=== PATIENT | female | born 1985 | race Caucasian/White ===

== ENCOUNTER 2019-04-04 23:23 | Inpatient (IN) | payer OTHER ==
[2019-04-04] MEDS: SOD CHLORIDE 0.9% 1,000 ML IV (23:59)
[2019-04-04] MEDS: ONDANSETRON 4 MG INJ IV (23:59)
[2019-04-04] MEDS: morphine 2 MG INJ IV (23:59)
[2019-04-05] MEDS ORDERED: NACL 0.9% 3 ML SYG IV
[2019-04-05 00:06] LABS: ABNORMAL IP MESSAGE 1; HEMOGLOBIN 7.8 g/dl (12.0-16.0); MEAN CORPUSCULAR HEMOGLOBIN 31.3 pg (29.0-33.0); MEAN CORPUSCULAR HGB CONC 32.5 g/dl (32.0-37.0); MEAN CORPUSCULAR VOLUME 96.4 fl (82.0-101.0); MEAN PLATELET VOLUME 10.2 fl (7.4-10.4); NUCLEATED RED BLOOD CELLS% 0.2 /100WBC (0.0-0.0); PLATELET COUNT 310 10^3/UL (140-415); RED BLOOD COUNT 2.49 10^6/ul (4.20-5.40); RED CELL DISTRIBUTION WIDTH 22.4 % (11.5-14.5)
[2019-04-05 00:06] LABS: WHITE BLOOD COUNT 9.4 10^3/ul (4.8-10.8)
[2019-04-05 00:09] LABS: ADD MAN DIFF? YES; POSITIVE DIFF @See below
[2019-04-05 00:12] LABS: HAAIG REFLEX REFLEX FILED
[2019-04-05 00:14] LABS: RETICULOCYTE RBC 2.35
[2019-04-05 00:14] LABS: RETICULOCYTE COUNT # 0.043 X10^6 (0.020-0.110); RETICULOCYTE COUNT % 1.8 % (0.5-1.5)
[2019-04-05 00:22] LABS: ALANINE AMINOTRANSFERASE 27 IU/L (13-69); ALBUMIN 2.8 g/dl (3.3-4.9); ALBUMIN/GLOBULIN RATIO 0.52; ALKALINE PHOSPHATASE 220 IU/L (42-121); ANION GAP 7 (5-13); ASPARTATE AMINO TRANSFERASE 125 IU/L (15-46); BILIRUBIN,INDIRECT 1.7 mg/dl (0-1.1); BILIRUBIN,TOTAL 4.5 mg/dl (0.2-1.3); BLOOD UREA NITROGEN 10 mg/dl (7-20); CARBON DIOXIDE 20 mmol/L (21-31); CHLORIDE 106 mmol/L (97-110); CREATININE 0.65 mg/dl (0.44-1.00); Estimated GFR > 60 mL/min (>60); GLUCOSE 107 mg/dl (70-220); LIPASE 62 U/L (23-300); POTASSIUM 3.9 mmol/L (3.5-5.1); SODIUM 133 mmol/L (135-144); TOTAL PROTEIN 8.1 g/dl (6.1-8.1)
[2019-04-05 00:25] LABS: INR 1.54; PROTIME 18.6 Sec (11.9-14.9); PT RATIO 1.5
[2019-04-05 00:26] LABS: PARTIAL THROMBOPLASTIN TIME 55.8 Sec (23.0-35.0)
[2019-04-05] MEDS: PANTOPRAZOLE 40 MG INJ IV ×3 (00:28→17:23)
[2019-04-05 00:32] LABS: LACTATE DEHYDROGENASE 412 IU/L (313-618)
[2019-04-05 00:34] LABS: B-TYPE NATRIURETIC PEPTIDE 2180 PG/ML (0-125); TROPONIN-I < 0.012 ng/ml (0.000-0.120)
[2019-04-05 00:47] LABS: ANISOCYTOSIS 3+ (0-0); BAND NEUTROPHILS #M 3.3 10^3/ul (0.0-0.6); BAND NEUTROPHILS % (M) 36 % (0-4); EOSINOPHILS % (M) 2 % (0-7); GIANT THROMBO% (M) 1 % (0-0); HYPOCHROMASIA 1+ (0-0); LYMPHOCYTES #M 1.6 10^3/ul (0.8-2.9); LYMPHOCYTES % (M) 18 % (15-51); MONOCYTE #M 0.5 10^3/ul (0.3-0.9); MONOCYTES % (M) 6 % (0-11); PLATELET ESTIMATE NORMAL; POLYCHROMASIA 3+ (0-0); SEG NEUT #M 3.9 10^3/ul (1.6-7.5); SEGMENTED NEUTROPHILS (M) % 38 % (39-77)
[2019-04-05 01:06] LABS: HEPATITIS B SURFACE ANTIGEN NEGATIVE (NEGATIVE)
[2019-04-05 01:23] LABS: HEPATITIS B CORE ANTIBODY NEGATIVE (NEGATIVE)
[2019-04-05 01:32] LABS: HEPATITIS B SURFACE ANTIBODY POSITIVE (NEGATIVE)
[2019-04-05 01:32] LABS: HEPATITIS C VIRAL ANTIBODY REACTIVE (NEGATIVE)
[2019-04-05] MEDS: ACETAMINOPHEN 325 MG TAB PO (02:41)
[2019-04-05] MEDS: morphine 2 MG INJ IV ×3 (04:24→13:07)
[2019-04-05 06:17] LABS: ABNORMAL IP MESSAGE 1; HEMATOCRIT 21.8 % (37.0-47.0); HEMOGLOBIN 7.3 g/dl (12.0-16.0); MEAN CORPUSCULAR HEMOGLOBIN 32.2 pg (29.0-33.0); MEAN CORPUSCULAR HGB CONC 33.5 g/dl (32.0-37.0); MEAN PLATELET VOLUME 10.3 fl (7.4-10.4); NUCLEATED RED BLOOD CELLS% 0.3 /100WBC (0.0-0.0); PLATELET COUNT 282 10^3/UL (140-415); RED BLOOD COUNT 2.27 10^6/ul (4.20-5.40); RED CELL DISTRIBUTION WIDTH 22.5 % (11.5-14.5)
[2019-04-05 06:17] LABS: WHITE BLOOD COUNT 7.7 10^3/ul (4.8-10.8)
[2019-04-05 06:28] LABS: POSITIVE DIFF @See below
[2019-04-05 06:29] LABS: ADD MAN DIFF? YES
[2019-04-05 06:40] LABS: MAGNESIUM 2.2 mg/dl (1.7-2.5)
[2019-04-05 06:45] LABS: ETHANOL < 10.0 mg/dl (0-0)
[2019-04-05] MEDS: SOD CHLORIDE 0.9% 1,000 ML IV ×2 (06:52→22:23)
[2019-04-05 07:17] LABS: HEMOGLOBIN A1C 5.5 % (0-5.9)
[2019-04-05] MEDS ORDERED: HARD FAT/PHENYLEPHRINE SUPP PR (10:00)
[2019-04-05 10:39] LABS: INR 1.51; PROTIME 18.3 Sec (11.9-14.9); PT RATIO 1.4
[2019-04-05 11:35] LABS: WHITE BLOOD COUNT 9.4 10^3/ul (4.8-10.8)
[2019-04-05 11:35] LABS: ABNORMAL IP MESSAGE 1; HEMATOCRIT 25.3 % (37.0-47.0); MEAN CORPUSCULAR HEMOGLOBIN 31.6 pg (29.0-33.0); MEAN CORPUSCULAR HGB CONC 31.6 g/dl (32.0-37.0); MEAN PLATELET VOLUME 10.2 fl (7.4-10.4); PLATELET COUNT 322 10^3/UL (140-415); RED BLOOD COUNT 2.53 10^6/ul (4.20-5.40); RED CELL DISTRIBUTION WIDTH 23.2 % (11.5-14.5)
[2019-04-05 11:37] LABS: ADD UMIC YES; UR ASCORBIC ACID NEGATIVE (NEGATIVE); UR BACTERIA FEW /HPF (NONE SEEN); UR BILIRUBIN (Dip) 2+ mg/dL (NEGATIVE); UR BLOOD (Dip) 3+ mg/dL (NEGATIVE); UR CLARITY SLIGHTLY CLOUDY (CLEAR); UR COLOR AMBER (YELLOW); UR GLUCOSE (Dip) NEGATIVE (NEGATIVE); UR KETONES (Dip) NEGATIVE (NEGATIVE); UR LEUKOCYTE ESTERASE (Dip) NEGATIVE Leu/ul (NEGATIVE); UR MUCUS FEW /HPF (NONE SEEN); UR NITRITE (Dip) NEGATIVE (NEGATIVE); UR RBC > 182 /HPF (0-5); UR SPECIFIC GRAVITY (Dip) 1.025 (1.003-1.030); UR SQUAMOUS EPITHELIAL CELL MODERATE /HPF (FEW); UR TOTAL PROTEIN (Dip) 2+ mg/dl (NEGATIVE); UR UROBILINOGEN (Dip) 2+ mg/dL (NEGATIVE); UR WBC 11 /HPF (0-5)
[2019-04-05 11:39] LABS: ADD MAN DIFF? YES; POSITIVE DIFF @See below
[2019-04-05 12:00] LABS: AMPHETAMINE/METHAMPHETAMINE Negative (NEGATIVE); BARBITURATES Negative (NEGATIVE); BENZODIAZEPINES Negative (NEGATIVE); CANNABINOIDS Negative (NEGATIVE); COCAINE Negative (NEGATIVE); OPIATES Positive (NEGATIVE)
[2019-04-05 12:03] LABS: BAND NEUTROPHILS #M 2.2 10^3/ul (0.0-0.6); BAND NEUTROPHILS % (M) 29 % (0-4); EOSINOPHILS % (M) 1 % (0-7); GIANT THROMBO% (M) 5 % (0-0); LYMPHOCYTES #M 1.8 10^3/ul (0.8-2.9); LYMPHOCYTES % (M) 24 % (15-51); MONOCYTE #M 0.4 10^3/ul (0.3-0.9); MONOCYTES % (M) 6 % (0-11); SEG NEUT #M 3.2 10^3/ul (1.6-7.5); SEGMENTED NEUTROPHILS (M) % 40 % (39-77); SMUDGE%M 7 % (0-0)
[2019-04-05] MEDS: morphine 4 MG/ML VIAL IV ×2 (16:12→20:27)
[2019-04-05 18:11] LABS: ABNORMAL IP MESSAGE 1; HEMATOCRIT 26.4 % (37.0-47.0); HEMOGLOBIN 8.3 g/dl (12.0-16.0); MEAN CORPUSCULAR HEMOGLOBIN 31.4 pg (29.0-33.0); MEAN CORPUSCULAR HGB CONC 31.4 g/dl (32.0-37.0); MEAN PLATELET VOLUME 10.2 fl (7.4-10.4); NUCLEATED RED BLOOD CELLS% 0.2 /100WBC (0.0-0.0); PLATELET COUNT 310 10^3/UL (140-415); RED BLOOD COUNT 2.64 10^6/ul (4.20-5.40); RED CELL DISTRIBUTION WIDTH 23.1 % (11.5-14.5)
[2019-04-05 18:11] LABS: WHITE BLOOD COUNT 8.2 10^3/ul (4.8-10.8)
[2019-04-05 18:12] LABS: ADD MAN DIFF? YES; POSITIVE DIFF @See below
[2019-04-05 19:05] LABS: ANISOCYTOSIS 3+ (0-0); BAND NEUTROPHILS #M 1.5 10^3/ul (0.0-0.6); BAND NEUTROPHILS % (M) 19 % (0-4); EOSINOPHILS % (M) 2 % (0-7); LYMPHOCYTES #M 1.3 10^3/ul (0.8-2.9); LYMPHOCYTES % (M) 17 % (15-51); MONOCYTE #M 0.6 10^3/ul (0.3-0.9); MONOCYTES % (M) 8 % (0-11); PLATELET ESTIMATE NORMAL; POIKILOCYTOSIS 1+ (0-0); POLYCHROMASIA 1+ (0-0); SEG NEUT #M 4.6 10^3/ul (1.6-7.5); SEGMENTED NEUTROPHILS (M) % 54 % (39-77); SMUDGE%M 1 % (0-0)
[2019-04-05 22:57] LABS: ADD MAN DIFF? NO
[2019-04-05 23:13] LABS: WHITE BLOOD COUNT 7.8 10^3/ul (4.8-10.8)
[2019-04-05 23:13] LABS: ABNORMAL IP MESSAGE 1; BASOPHILS % 0.5 % (0.0-2.0); EOSINOPHILS # 0.2 10^3/ul (0.0-0.5); EOSINOPHILS % 2.1 % (0.0-7.0); HEMATOCRIT 23.7 % (37.0-47.0); HEMOGLOBIN 7.6 g/dl (12.0-16.0); LYMPHOCYTES # 1.3 10^3/ul (0.8-2.9); LYMPHOCYTES % 16.2 % (15.0-51.0); MEAN CORPUSCULAR HEMOGLOBIN 32.2 pg (29.0-33.0); MEAN CORPUSCULAR HGB CONC 32.1 g/dl (32.0-37.0); MEAN CORPUSCULAR VOLUME 100.4 fl (82.0-101.0); MONOCYTE # 0.7 10^3/ul (0.3-0.9); MONOCYTES % 8.8 % (0.0-11.0); NEUTROPHIL # 5.5 10^3/ul (1.6-7.5); NEUTROPHILS % 70.5 % (39.0-77.0); PLATELET COUNT 313 10^3/UL (140-415); RED BLOOD COUNT 2.36 10^6/ul (4.20-5.40); RED CELL DISTRIBUTION WIDTH 22.6 % (11.5-14.5)
[2019-04-05 23:15] LABS: POSITIVE DIFF @See below
[2019-04-06] MEDS: morphine 4 MG/ML VIAL IV ×6 (01:56→23:17)
[2019-04-06] MEDS: PANTOPRAZOLE 40 MG INJ IV ×2 (05:53→17:18)
[2019-04-06 07:28] LABS: ALANINE AMINOTRANSFERASE 25 IU/L (13-69); ALBUMIN 2.6 g/dl (3.3-4.9); ALBUMIN/GLOBULIN RATIO 0.52; ALKALINE PHOSPHATASE 184 IU/L (42-121); ANION GAP 4 (5-13); ASPARTATE AMINO TRANSFERASE 218 IU/L (15-46); BILIRUBIN,INDIRECT 1.4 mg/dl (0-1.1); BILIRUBIN,TOTAL 3.2 mg/dl (0.2-1.3); BLOOD UREA NITROGEN 6 mg/dl (7-20); CALCIUM 7.9 mg/dl (8.4-10.2); CARBON DIOXIDE 22 mmol/L (21-31); CHLORIDE 110 mmol/L (97-110); CREATININE 0.56 mg/dl (0.44-1.00); Estimated GFR > 60 mL/min (>60); GLUCOSE 81 mg/dl (70-220); POTASSIUM 4.2 mmol/L (3.5-5.1); SODIUM 136 mmol/L (135-144); TOTAL PROTEIN 7.6 g/dl (6.1-8.1)
[2019-04-06 07:37] LABS: PHOSPHORUS 3.8 mg/dl (2.5-4.9)
[2019-04-06 07:37] LABS: MAGNESIUM 2.1 mg/dl (1.7-2.5)
[2019-04-06 11:52] LABS: OCCULT BLOOD STOOL POSITIVE (NEGATIVE)
[2019-04-06] MEDS: SOD CHLORIDE 0.9% 1,000 ML IV (14:11)
[2019-04-06 15:58] LABS: HEMATOCRIT 22.5 % (37.0-47.0); HEMOGLOBIN 7.3 g/dl (12.0-16.0)
[2019-04-06 16:56] LABS: HAPTOGLOBIN 190 mg/dL (43-212)
[2019-04-06] MEDS: SOD CHLORIDE 0.9% 250 ML IV* (17:47)
[2019-04-06] MEDS: SKIN RESP FACT/SHARK/PH MERCU SUPP PR (20:07)
[2019-04-06] MEDS ORDERED: HARD FAT/PHENYLEPHRINE SUPP PR (21:00)
[2019-04-06 22:02] LABS: IMMEDIATE SPIN CROSSMATCH 1 1
[2019-04-06] MEDS: HYOSCYAMINE 0.125 MG SUBL TAB PO (22:36)
[2019-04-07] MEDS: morphine 4 MG/ML VIAL IV ×3 (03:50→13:27)
[2019-04-07 04:50] LABS: ADD MAN DIFF? NO
[2019-04-07 04:58] LABS: BASOPHIL # 0.1 10^3/ul (0.0-0.1); BASOPHILS % 0.8 % (0.0-2.0); EOSINOPHILS # 0.2 10^3/ul (0.0-0.5); EOSINOPHILS % 1.8 % (0.0-7.0); HEMATOCRIT 23.8 % (37.0-47.0); HEMOGLOBIN 7.6 g/dl (12.0-16.0); LYMPHOCYTES # 1.4 10^3/ul (0.8-2.9); MEAN CORPUSCULAR HEMOGLOBIN 31.8 pg (29.0-33.0); MEAN CORPUSCULAR HGB CONC 31.9 g/dl (32.0-37.0); MEAN CORPUSCULAR VOLUME 99.6 fl (82.0-101.0); MEAN PLATELET VOLUME 9.7 fl (7.4-10.4); MONOCYTE # 0.8 10^3/ul (0.3-0.9); NEUTROPHIL # 6.1 10^3/ul (1.6-7.5); NEUTROPHILS % 70.7 % (39.0-77.0); PLATELET COUNT 297 10^3/UL (140-415); RED BLOOD COUNT 2.39 10^6/ul (4.20-5.40)
[2019-04-07 04:58] LABS: WHITE BLOOD COUNT 8.7 10^3/ul (4.8-10.8)
[2019-04-07 05:16] LABS: ALANINE AMINOTRANSFERASE 21 IU/L (13-69); ALBUMIN 2.5 g/dl (3.3-4.9); ALBUMIN/GLOBULIN RATIO 0.52; ALKALINE PHOSPHATASE 175 IU/L (42-121); ANION GAP 4 (5-13); ASPARTATE AMINO TRANSFERASE 170 IU/L (15-46); BILIRUBIN,INDIRECT 1.5 mg/dl (0-1.1); BILIRUBIN,TOTAL 3.3 mg/dl (0.2-1.3); BLOOD UREA NITROGEN 3 mg/dl (7-20); CARBON DIOXIDE 22 mmol/L (21-31); CHLORIDE 109 mmol/L (97-110); CREATININE 0.53 mg/dl (0.44-1.00); Estimated GFR > 60 mL/min (>60); GLUCOSE 98 mg/dl (70-220); POTASSIUM 3.8 mmol/L (3.5-5.1); SODIUM 135 mmol/L (135-144); TOTAL PROTEIN 7.3 g/dl (6.1-8.1)
[2019-04-07 05:17] LABS: MAGNESIUM 1.8 mg/dl (1.7-2.5)
[2019-04-07 05:17] LABS: PHOSPHORUS 3.6 mg/dl (2.5-4.9)
[2019-04-07] MEDS: PANTOPRAZOLE 40 MG INJ IV ×2 (05:45→17:26)
[2019-04-07] MEDS: HYOSCYAMINE 0.125 MG SUBL TAB PO ×3 (05:45→21:10)
[2019-04-07] MEDS: SOD CHLORIDE 0.9% 1,000 ML IV (08:42)
[2019-04-07 14:05] LABS: IRON 62 ug/dl (35-150)
[2019-04-07 14:14] LABS: % IRON SATURATION 40 % SAT (22-52); TOTAL IRON BINDING CAPACITY 156 ug/dl (241-421)
[2019-04-07 15:00] LABS: FERRITIN 67.1 ng/ml (6.2-137.0)
[2019-04-07] MEDS: traMADol 50 MG TAB PO (17:24)
[2019-04-07] MEDS: KETOROLAC 30 MG INJ IV (19:47)
[2019-04-07] MEDS: HYDROCORTISONE 2.5% 30 GM RECT CR PR (21:11)
[2019-04-07] MEDS: morphine 2 MG INJ IV (22:26)
[2019-04-08] MEDS: morphine 2 MG INJ IV ×5 (03:12→20:59)
[2019-04-08] MEDS: PANTOPRAZOLE 40 MG INJ IV ×2 (05:47→18:29)
[2019-04-08] MEDS: HYOSCYAMINE 0.125 MG SUBL TAB PO ×3 (05:47→20:24)
[2019-04-08 06:09] LABS: ADD MAN DIFF? NO
[2019-04-08 06:11] LABS: BASOPHIL # 0.1 10^3/ul (0.0-0.1); BASOPHILS % 0.5 % (0.0-2.0); EOSINOPHILS # 0.2 10^3/ul (0.0-0.5); EOSINOPHILS % 1.5 % (0.0-7.0); HEMATOCRIT 23.8 % (37.0-47.0); HEMOGLOBIN 7.6 g/dl (12.0-16.0); LYMPHOCYTES # 1.3 10^3/ul (0.8-2.9); LYMPHOCYTES % 12.3 % (15.0-51.0); MEAN CORPUSCULAR HEMOGLOBIN 32.3 pg (29.0-33.0); MEAN CORPUSCULAR HGB CONC 31.9 g/dl (32.0-37.0); MEAN CORPUSCULAR VOLUME 101.3 fl (82.0-101.0); MEAN PLATELET VOLUME 9.9 fl (7.4-10.4); MONOCYTE # 0.8 10^3/ul (0.3-0.9); MONOCYTES % 7.6 % (0.0-11.0); NEUTROPHIL # 7.8 10^3/ul (1.6-7.5); NEUTROPHILS % 76.1 % (39.0-77.0); PLATELET COUNT 312 10^3/UL (140-415); RED BLOOD COUNT 2.35 10^6/ul (4.20-5.40); RED CELL DISTRIBUTION WIDTH 21.2 % (11.5-14.5)
[2019-04-08 06:41] LABS: PHOSPHORUS 3.7 mg/dl (2.5-4.9)
[2019-04-08 06:41] LABS: MAGNESIUM 1.7 mg/dl (1.7-2.5)
[2019-04-08 06:42] LABS: POSITIVE DIFF @See below
[2019-04-08 06:43] LABS: WHITE BLOOD COUNT 10.2 10^3/ul (4.8-10.8)
[2019-04-08 06:48] LABS: ALANINE AMINOTRANSFERASE 28 IU/L (13-69); ALBUMIN 2.5 g/dl (3.3-4.9); ALBUMIN/GLOBULIN RATIO 0.54; ALKALINE PHOSPHATASE 185 IU/L (42-121); ANION GAP 7 (5-13); ASPARTATE AMINO TRANSFERASE 161 IU/L (15-46); BILIRUBIN,INDIRECT 1.6 mg/dl (0-1.1); BILIRUBIN,TOTAL 3.4 mg/dl (0.2-1.3); BLOOD UREA NITROGEN 2 mg/dl (7-20); CALCIUM 8.2 mg/dl (8.4-10.2); CARBON DIOXIDE 21 mmol/L (21-31); CHLORIDE 107 mmol/L (97-110); CREATININE 0.58 mg/dl (0.44-1.00); Estimated GFR > 60 mL/min (>60); GLUCOSE 105 mg/dl (70-220); POTASSIUM 3.6 mmol/L (3.5-5.1); SODIUM 135 mmol/L (135-144); TOTAL PROTEIN 7.1 g/dl (6.1-8.1)
[2019-04-08] MEDS: HYDROCORTISONE 2.5% 30 GM RECT CR PR ×2 (07:45→20:24)
[2019-04-08] MEDS: SKIN RESP FACT/SHARK/PH MERCU SUPP PR ×2 (14:40→21:10)
[2019-04-08] MEDS: KETOROLAC 30 MG INJ IV (18:29)
[2019-04-09] MEDS: KETOROLAC 30 MG INJ IV ×4 (01:50→20:56)
[2019-04-09 05:45] LABS: WHITE BLOOD COUNT 11.6 10^3/ul (4.8-10.8)
[2019-04-09 05:45] LABS: HEMATOCRIT 23.8 % (37.0-47.0); HEMOGLOBIN 7.6 g/dl (12.0-16.0); MEAN CORPUSCULAR HEMOGLOBIN 32.2 pg (29.0-33.0); MEAN CORPUSCULAR HGB CONC 31.9 g/dl (32.0-37.0); MEAN CORPUSCULAR VOLUME 100.8 fl (82.0-101.0); MEAN PLATELET VOLUME 9.7 fl (7.4-10.4); PLATELET COUNT 323 10^3/UL (140-415); RED BLOOD COUNT 2.36 10^6/ul (4.20-5.40); RED CELL DISTRIBUTION WIDTH 21.2 % (11.5-14.5)
[2019-04-09] MEDS: PANTOPRAZOLE 40 MG INJ IV ×2 (05:57→18:10)
[2019-04-09] MEDS: HYOSCYAMINE 0.125 MG SUBL TAB PO ×3 (05:57→20:55)
[2019-04-09 06:06] LABS: INR 1.44; PROTIME 17.6 Sec (11.9-14.9); PT RATIO 1.4
[2019-04-09 06:12] LABS: ADD MAN DIFF? YES; POSITIVE DIFF @See below
[2019-04-09 06:15] LABS: MAGNESIUM 1.8 mg/dl (1.7-2.5)
[2019-04-09 06:15] LABS: PHOSPHORUS 4.5 mg/dl (2.5-4.9)
[2019-04-09 06:19] LABS: ALANINE AMINOTRANSFERASE 30 IU/L (13-69); ALBUMIN 2.5 g/dl (3.3-4.9); ALBUMIN/GLOBULIN RATIO 0.53; ALKALINE PHOSPHATASE 177 IU/L (42-121); ANION GAP 5 (5-13); ASPARTATE AMINO TRANSFERASE 200 IU/L (15-46); BILIRUBIN,INDIRECT 1.4 mg/dl (0-1.1); BILIRUBIN,TOTAL 2.8 mg/dl (0.2-1.3); BLOOD UREA NITROGEN 3 mg/dl (7-20); CALCIUM 8.2 mg/dl (8.4-10.2); CARBON DIOXIDE 24 mmol/L (21-31); CHLORIDE 108 mmol/L (97-110); CREATININE 0.66 mg/dl (0.44-1.00); Estimated GFR > 60 mL/min (>60); GLUCOSE 97 mg/dl (70-220); POTASSIUM 3.6 mmol/L (3.5-5.1); SODIUM 137 mmol/L (135-144); TOTAL PROTEIN 7.2 g/dl (6.1-8.1)
[2019-04-09 07:51] LABS: ANISOCYTOSIS 1+ (0-0); BAND NEUTROPHILS #M 3.5 10^3/ul (0.0-0.6); BAND NEUTROPHILS % (M) 31 % (0-4); EOSINOPHILS % (M) 3 % (0-7); GIANT THROMBO% (M) 2 % (0-0); LYMPHOCYTES #M 1.1 10^3/ul (0.8-2.9); LYMPHOCYTES % (M) 10 % (15-51); MONOCYTE #M 0.2 10^3/ul (0.3-0.9); MONOCYTES % (M) 2 % (0-11); PLATELET ESTIMATE NORMAL; PROMYELOCYTES #M 0.1 10^3/ul (0-0); PROMYELOCYTES % (M) 1 % (0-0); REACTIVE LYMPHOCYTES #M 0.1 10^3/ul (0.0-0.0); REACTIVE LYMPHOCYTES% (M) 1 % (0-0); SEG NEUT #M 6.4 10^3/ul (1.6-7.5); SEGMENTED NEUTROPHILS (M) % 52 % (39-77); SMUDGE%M 6 % (0-0)
[2019-04-09] MEDS: HYDROCORTISONE 2.5% 30 GM RECT CR PR ×2 (08:37→20:55)
[2019-04-09] MEDS: traMADol 50 MG TAB PO ×2 (10:02→17:41)
[2019-04-09] MEDS: ONDANSETRON 4 MG INJ IV (10:04)
[2019-04-09] MEDS: SOD CHLORIDE 0.9% 250 ML IV* (10:55)
[2019-04-09 14:05] LABS: IMMEDIATE SPIN CROSSMATCH 1 2
[2019-04-09] MEDS: SKIN RESP FACT/SHARK/PH MERCU SUPP PR (14:24)
[2019-04-10] MEDS: traMADol 50 MG TAB PO ×3 (00:21→14:43)
[2019-04-10] MEDS: KETOROLAC 30 MG INJ IV ×2 (04:40→10:51)
[2019-04-10] MEDS: HYOSCYAMINE 0.125 MG SUBL TAB PO (06:34)
[2019-04-10] MEDS: PANTOPRAZOLE 40 MG INJ IV ×2 (06:34→17:04)
[2019-04-10 09:44] LABS: ADD MAN DIFF? NO
[2019-04-10 09:47] LABS: WHITE BLOOD COUNT 13.8 10^3/ul (4.8-10.8)
[2019-04-10 09:47] LABS: BASOPHIL # 0.1 10^3/ul (0.0-0.1); BASOPHILS % 0.5 % (0.0-2.0); EOSINOPHILS # 0.2 10^3/ul (0.0-0.5); EOSINOPHILS % 1.4 % (0.0-7.0); HEMATOCRIT 27.4 % (37.0-47.0); HEMOGLOBIN 8.5 g/dl (12.0-16.0); LYMPHOCYTES # 1.2 10^3/ul (0.8-2.9); LYMPHOCYTES % 8.9 % (15.0-51.0); MEAN CORPUSCULAR HEMOGLOBIN 32.2 pg (29.0-33.0); MEAN CORPUSCULAR VOLUME 103.8 fl (82.0-101.0); MEAN PLATELET VOLUME 9.7 fl (7.4-10.4); MONOCYTE # 0.7 10^3/ul (0.3-0.9); MONOCYTES % 5.2 % (0.0-11.0); NEUTROPHIL # 11.4 10^3/ul (1.6-7.5); NEUTROPHILS % 82.7 % (39.0-77.0); PLATELET COUNT 374 10^3/UL (140-415); RED BLOOD COUNT 2.64 10^6/ul (4.20-5.40); RED CELL DISTRIBUTION WIDTH 21.1 % (11.5-14.5)
[2019-04-10] MEDS: HYDROCORTISONE 2.5% 30 GM RECT CR PR ×2 (10:08→21:56)
[2019-04-10] MEDS: PSYLLIUM 28% PACKET PO (14:44)
[2019-04-10 15:11] LABS: INR 1.32; PROTIME 16.5 Sec (11.9-14.9); PT RATIO 1.3
[2019-04-10] MEDS: HYDROCODONE/APAP (5/325) TAB PO ×2 (15:54→21:56)
[2019-04-10] MEDS: ONDANSETRON 4 MG INJ IV (15:56)
[2019-04-10 21:34] LABS: ADD UMIC YES; UR ASCORBIC ACID NEGATIVE (NEGATIVE); UR BILIRUBIN (Dip) 1+ mg/dL (NEGATIVE); UR BLOOD (Dip) 1+ mg/dL (NEGATIVE); UR CLARITY CLEAR (CLEAR); UR COLOR AMBER (YELLOW); UR GLUCOSE (Dip) NEGATIVE (NEGATIVE); UR KETONES (Dip) NEGATIVE (NEGATIVE); UR LEUKOCYTE ESTERASE (Dip) NEGATIVE Leu/ul (NEGATIVE); UR NITRITE (Dip) NEGATIVE (NEGATIVE); UR RBC 0 /HPF (0-5); UR SPECIFIC GRAVITY (Dip) 1.009 (1.003-1.030); UR SQUAMOUS EPITHELIAL CELL FEW /HPF (FEW); UR TOTAL PROTEIN (Dip) NEGATIVE (NEGATIVE); UR UROBILINOGEN (Dip) 2+ mg/dL (NEGATIVE); UR WBC 3 /HPF (0-5)
[2019-04-11] MEDS: HYDROCODONE/APAP (5/325) TAB PO ×3 (03:34→12:32)
[2019-04-11] MEDS: PANTOPRAZOLE 40 MG INJ IV ×2 (06:37→18:00)
[2019-04-11 06:46] LABS: WHITE BLOOD COUNT 11.4 10^3/ul (4.8-10.8)
[2019-04-11 06:46] LABS: HEMATOCRIT 23.5 % (37.0-47.0); HEMOGLOBIN 7.4 g/dl (12.0-16.0); MEAN CORPUSCULAR HEMOGLOBIN 32.2 pg (29.0-33.0); MEAN CORPUSCULAR HGB CONC 31.5 g/dl (32.0-37.0); MEAN CORPUSCULAR VOLUME 102.2 fl (82.0-101.0); MEAN PLATELET VOLUME 9.5 fl (7.4-10.4); PLATELET COUNT 297 10^3/UL (140-415); RED CELL DISTRIBUTION WIDTH 21.1 % (11.5-14.5)
[2019-04-11 06:54] LABS: ADD MAN DIFF? YES; POSITIVE DIFF @See below
[2019-04-11 07:08] LABS: ALANINE AMINOTRANSFERASE 41 IU/L (13-69); ALBUMIN 2.4 g/dl (3.3-4.9); ALBUMIN/GLOBULIN RATIO 0.52; ALKALINE PHOSPHATASE 174 IU/L (42-121); ANION GAP 6 (5-13); ASPARTATE AMINO TRANSFERASE 365 IU/L (15-46); BILIRUBIN,INDIRECT 1.3 mg/dl (0-1.1); BILIRUBIN,TOTAL 2.6 mg/dl (0.2-1.3); BLOOD UREA NITROGEN 4 mg/dl (7-20); CALCIUM 8.3 mg/dl (8.4-10.2); CARBON DIOXIDE 23 mmol/L (21-31); CHLORIDE 107 mmol/L (97-110); CREATININE 0.69 mg/dl (0.44-1.00); Estimated GFR > 60 mL/min (>60); GLUCOSE 84 mg/dl (70-220); POTASSIUM 3.9 mmol/L (3.5-5.1); SODIUM 136 mmol/L (135-144)
[2019-04-11] MEDS: PSYLLIUM 28% PACKET PO (08:09)
[2019-04-11] MEDS: HYDROCORTISONE 2.5% 30 GM RECT CR PR ×2 (08:10→20:53)
[2019-04-11] MEDS: SKIN RESP FACT/SHARK/PH MERCU SUPP PR (09:24)
[2019-04-11 09:39] LABS: ANISOCYTOSIS 2+ (0-0); BAND NEUTROPHILS #M 4.9 10^3/ul (0.0-0.6); BAND NEUTROPHILS % (M) 43 % (0-4); LYMPHOCYTES #M 1.1 10^3/ul (0.8-2.9); LYMPHOCYTES % (M) 10 % (15-51); METAMYELOCYTES #M 0.1 10^3/ul (0.0-0.0); METAMYELOCYTES %M 1 % (0-0); MONOCYTE #M 0.4 10^3/ul (0.3-0.9); MONOCYTES % (M) 4 % (0-11); PLATELET ESTIMATE NORMAL; SEG NEUT #M 5.3 10^3/ul (1.6-7.5); SEGMENTED NEUTROPHILS (M) % 42 % (39-77); SMUDGE%M 52 % (0-0)
[2019-04-11] MEDS: BARIUM SULF 2% 450 ML BTL (BERRY SMOOTHIE) PO (14:26)
[2019-04-11] MEDS: ONDANSETRON 4 MG INJ IV (14:29)
[2019-04-11 15:08] LABS: HEMATOCRIT 23.6 % (37.0-47.0); HEMOGLOBIN 7.4 g/dl (12.0-16.0)
[2019-04-11] MEDS: IOHEXOL 300MG/ML 150 ML BTL (16:33)
[2019-04-11] MEDS: SOD CHLORIDE 0.9% 100 ML (16:33)
[2019-04-11] MEDS: traMADol 50 MG TAB PO ×2 (16:49→22:53)
[2019-04-12] MEDS: PANTOPRAZOLE 40 MG INJ IV ×2 (05:15→17:21)
[2019-04-12] MEDS: traMADol 50 MG TAB PO ×4 (05:15→23:08)
[2019-04-12 06:18] LABS: ADD MAN DIFF? NO
[2019-04-12 06:25] LABS: BASOPHIL # 0.1 10^3/ul (0.0-0.1); BASOPHILS % 0.6 % (0.0-2.0); EOSINOPHILS # 0.1 10^3/ul (0.0-0.5); EOSINOPHILS % 0.7 % (0.0-7.0); HEMOGLOBIN 7.2 g/dl (12.0-16.0); LYMPHOCYTES # 1.8 10^3/ul (0.8-2.9); LYMPHOCYTES % 14.5 % (15.0-51.0); MEAN CORPUSCULAR HEMOGLOBIN 32.4 pg (29.0-33.0); MEAN CORPUSCULAR HGB CONC 31.3 g/dl (32.0-37.0); MEAN CORPUSCULAR VOLUME 103.6 fl (82.0-101.0); MEAN PLATELET VOLUME 9.5 fl (7.4-10.4); MONOCYTE # 0.5 10^3/ul (0.3-0.9); MONOCYTES % 4.1 % (0.0-11.0); NEUTROPHILS % 79.1 % (39.0-77.0); PLATELET COUNT 321 10^3/UL (140-415); RED BLOOD COUNT 2.22 10^6/ul (4.20-5.40); RED CELL DISTRIBUTION WIDTH 21.2 % (11.5-14.5)
[2019-04-12 06:25] LABS: WHITE BLOOD COUNT 12.6 10^3/ul (4.8-10.8)
[2019-04-12 06:47] LABS: ANION GAP 7 (5-13); BLOOD UREA NITROGEN 2 mg/dl (7-20); CALCIUM 8.5 mg/dl (8.4-10.2); CARBON DIOXIDE 25 mmol/L (21-31); CHLORIDE 105 mmol/L (97-110); CREATININE 0.66 mg/dl (0.44-1.00); Estimated GFR > 60 mL/min (>60); GLUCOSE 85 mg/dl (70-220); POTASSIUM 4.1 mmol/L (3.5-5.1); SODIUM 137 mmol/L (135-144)
[2019-04-12] MEDS: PSYLLIUM 28% PACKET PO (09:04)
[2019-04-12] MEDS: HYDROCORTISONE 2.5% 30 GM RECT CR PR ×2 (09:04→21:15)
[2019-04-12 11:09] LABS: IMMEDIATE SPIN CROSSMATCH 1 1
[2019-04-12] MEDS: SOD CHLORIDE 0.9% 250 ML IV* (11:22)
[2019-04-12] MEDS: ONDANSETRON 4 MG INJ IV (12:32)
[2019-04-12] MEDS: HYOSCYAMINE 0.125 MG SUBL TAB PO (14:21)
[2019-04-13 06:30] LABS: ADD MAN DIFF? NO
[2019-04-13] MEDS: PANTOPRAZOLE 40 MG INJ IV ×2 (06:33→17:52)
[2019-04-13 06:35] LABS: BASOPHILS % 0.4 % (0.0-2.0); EOSINOPHILS # 0.1 10^3/ul (0.0-0.5); HEMATOCRIT 24.5 % (37.0-47.0); HEMOGLOBIN 7.9 g/dl (12.0-16.0); LYMPHOCYTES # 1.5 10^3/ul (0.8-2.9); LYMPHOCYTES % 13.5 % (15.0-51.0); MEAN CORPUSCULAR HEMOGLOBIN 32.6 pg (29.0-33.0); MEAN CORPUSCULAR HGB CONC 32.2 g/dl (32.0-37.0); MEAN CORPUSCULAR VOLUME 101.2 fl (82.0-101.0); MEAN PLATELET VOLUME 9.7 fl (7.4-10.4); MONOCYTE # 0.5 10^3/ul (0.3-0.9); MONOCYTES % 4.7 % (0.0-11.0); NEUTROPHIL # 9.1 10^3/ul (1.6-7.5); NEUTROPHILS % 79.6 % (39.0-77.0); PLATELET COUNT 315 10^3/UL (140-415); RED BLOOD COUNT 2.42 10^6/ul (4.20-5.40); RED CELL DISTRIBUTION WIDTH 21.4 % (11.5-14.5)
[2019-04-13 06:35] LABS: WHITE BLOOD COUNT 11.4 10^3/ul (4.8-10.8)
[2019-04-13 07:05] LABS: ANION GAP 5 (5-13); CALCIUM 8.5 mg/dl (8.4-10.2); CARBON DIOXIDE 29 mmol/L (21-31); CHLORIDE 103 mmol/L (97-110); CREATININE 0.64 mg/dl (0.44-1.00); Estimated GFR > 60 mL/min (>60); GLUCOSE 84 mg/dl (70-220); POTASSIUM 4.2 mmol/L (3.5-5.1); SODIUM 137 mmol/L (135-144)
[2019-04-13 07:11] LABS: BLOOD UREA NITROGEN < 2 mg/dl (7-20)
[2019-04-13] MEDS ORDERED: CEFAZOLIN 1 GM INJ (07:21)
[2019-04-13] MEDS ORDERED: LIDOCAINE 2% (SDV) 5 ML INJ (07:21)
[2019-04-13] MEDS ORDERED: PROPOFOL 20 ML (07:21)
[2019-04-13] MEDS ORDERED: MIDAZOLAM 1 MG/ML 2 ML INJ (07:21)
[2019-04-13] MEDS ORDERED: ROCURONIUM 50 MG INJ (07:21)
[2019-04-13] MEDS ORDERED: HYDROmorphONE 2 MG/ML SYG (07:21)
[2019-04-13] MEDS ORDERED: FAMOTIDINE 20 MG INJ (08:14)
[2019-04-13] MEDS ORDERED: DEXAMETHASONE 4 MG/ML 5 ML INJ (08:14)
[2019-04-13] MEDS ORDERED: ONDANSETRON 4 MG INJ (08:14)
[2019-04-13] MEDS ORDERED: METOCLOPRAMIDE 10 MG INJ (08:14)
[2019-04-13] MEDS: BUPIVACAINE 0.5%/EPI (SDV) 30 ML INJ (08:28)
[2019-04-13] MEDS ORDERED: SUGAMMADEX SODIUM 200 MG/2 ML VIAL IV (08:33)
[2019-04-13] MEDS: PSYLLIUM 28% PACKET PO ×2 (09:00→11:08)
[2019-04-13] MEDS ORDERED: ONDANSETRON 4 MG INJ IV ×2 (09:00)
[2019-04-13] MEDS: HYDROCORTISONE 2.5% 30 GM RECT CR PR ×2 (09:00→20:21)
[2019-04-13] MEDS ORDERED: OXYCODONE/ACETAMINOPHEN (5/325) TAB PO ×3 (09:00)
[2019-04-13] MEDS ORDERED: MIDAZOLAM 1 MG/ML 2 ML INJ IV (09:00)
[2019-04-13] MEDS ORDERED: MEPERIDINE 25 MG INJ IV (09:00)
[2019-04-13] MEDS ORDERED: HYDROmorphONE 1 MG/5 ML IV SYRINGE IV ×3 (09:00)
[2019-04-13] MEDS ORDERED: LORAZEPAM 2 MG INJ IV (09:30)
[2019-04-13] MEDS: morphine 2 MG INJ IV (11:08)
[2019-04-13] MEDS: OXYCODONE/ACETAMINOPHEN (5/325) TAB PO (12:37)
[2019-04-13 13:27] LABS: MITOCHONDRIAL TB NEGATIVE (NEGATIVE); SMOOTH MUSCLE AB SCREEN NEGATIVE (NEGATIVE)
[2019-04-13] MEDS: HYDROmorphONE 1 MG/ML SYG IV ×2 (15:32→20:20)
[2019-04-14] MEDS: OXYCODONE/ACETAMINOPHEN (5/325) TAB PO ×2 (00:30→10:17)
[2019-04-14] MEDS: HYDROmorphONE 1 MG/ML SYG IV ×3 (03:41→12:30)
[2019-04-14] MEDS: PANTOPRAZOLE 40 MG INJ IV (06:13)
[2019-04-14 06:17] LABS: ADD MAN DIFF? NO
[2019-04-14 06:24] LABS: WHITE BLOOD COUNT 16.4 10^3/ul (4.8-10.8)
[2019-04-14 06:24] LABS: BASOPHILS % 0.2 % (0.0-2.0); EOSINOPHILS % 0.2 % (0.0-7.0); HEMATOCRIT 26.8 % (37.0-47.0); HEMOGLOBIN 8.5 g/dl (12.0-16.0); LYMPHOCYTES # 1.3 10^3/ul (0.8-2.9); LYMPHOCYTES % 8.2 % (15.0-51.0); MEAN CORPUSCULAR HEMOGLOBIN 32.2 pg (29.0-33.0); MEAN CORPUSCULAR HGB CONC 31.7 g/dl (32.0-37.0); MEAN CORPUSCULAR VOLUME 101.5 fl (82.0-101.0); MEAN PLATELET VOLUME 9.6 fl (7.4-10.4); MONOCYTES % 5.9 % (0.0-11.0); NEUTROPHIL # 13.9 10^3/ul (1.6-7.5); NEUTROPHILS % 84.6 % (39.0-77.0); PLATELET COUNT 398 10^3/UL (140-415); RED BLOOD COUNT 2.64 10^6/ul (4.20-5.40); RED CELL DISTRIBUTION WIDTH 21.8 % (11.5-14.5)
[2019-04-14 07:03] LABS: ANION GAP 7 (5-13); BLOOD UREA NITROGEN 7 mg/dl (7-20); CALCIUM 9.1 mg/dl (8.4-10.2); CARBON DIOXIDE 29 mmol/L (21-31); CHLORIDE 101 mmol/L (97-110); CREATININE 0.63 mg/dl (0.44-1.00); Estimated GFR > 60 mL/min (>60); GLUCOSE 119 mg/dl (70-220); POTASSIUM 4.5 mmol/L (3.5-5.1); SODIUM 137 mmol/L (135-144)
[2019-04-14] MEDS: PSYLLIUM 28% PACKET PO (08:07)
[2019-04-14] MEDS: HYDROCORTISONE 2.5% 30 GM RECT CR PR (08:07)
[2019-04-14 11:03] LABS: ALANINE AMINOTRANSFERASE 32 IU/L (13-69); ALKALINE PHOSPHATASE 182 IU/L (42-121); ASPARTATE AMINO TRANSFERASE 222 IU/L (15-46); BILIRUBIN,INDIRECT 1.5 mg/dl (0-1.1); BILIRUBIN,TOTAL 2.3 mg/dl (0.2-1.3); TOTAL PROTEIN 7.8 g/dl (6.1-8.1)
[2019-04-16 19:52] LABS: ANA SCREEN NEGATIVE (NEGATIVE)
== END 2019-04-14 13:20 | disposition home or self-care (01) | DRG 348 ==
LOC: E/R 23:23 → 2NE 23:49
PROC: 06BY0ZC Excision of Hemorrhoidal Plexus, Open Approach (ICD-10-PCS; principal; 2019-04-13 07:56)
PROC: 30233N1 Transfusion of Nonautologous Red Blood Cells into Peripheral Vein, Percutaneous Approach (ICD-10-PCS; 2019-04-13 07:56)
PROC: 30233N1 Transfusion of Nonautologous Red Blood Cells into Peripheral Vein, Percutaneous Approach (ICD-10-PCS; 2019-04-13 07:56)
PROC: 30233N1 Transfusion of Nonautologous Red Blood Cells into Peripheral Vein, Percutaneous Approach (ICD-10-PCS; 2019-04-13 07:56)
DX: K64.2 Third degree hemorrhoids (principal); D68.9 Coagulation defect, unspecified; D62 Acute posthemorrhagic anemia; K62.5 Hemorrhage of anus and rectum; K64.8 Other hemorrhoids; I27.20 Pulmonary hypertension, unspecified; K70.10 Alcoholic hepatitis without ascites; F10.10 Alcohol abuse, uncomplicated; Y90.0 Blood alcohol level of less than 20 mg/100 ml; E66.9 Obesity, unspecified; Z68.31 Body mass index [BMI] 31.0-31.9, adult; Z59.0 Homelessness
CPT/HCPCS: 36430; 71045; 74177; 74181; 76705; 80048; 80053; 80076; 80307; 81001; 82270; 82728; 83010; 83036; 83540; 83615; 83690; 83735; 83880; 84100; 84443; 84484; 84703; 85014; 85018; 85025; 85045; 85610; 85730; 86038; 86255; 86704; 86706; 86708; 86709; 86803; 86850; 86900; 86901; 86920; 87040-91; 87081; 87086; 87340; 87522; 88302; 93005; 93306

== ENCOUNTER 2019-04-25 09:04 | Emergency (ER) | payer OTHER ==
[2019-04-25 11:36] LABS: ADD MAN DIFF? NO
[2019-04-25 11:38] LABS: WHITE BLOOD COUNT 10.1 10^3/ul (4.8-10.8)
[2019-04-25 11:38] LABS: ABNORMAL IP MESSAGE 1; BASOPHILS % 0.4 % (0.0-2.0); EOSINOPHILS # 0.1 10^3/ul (0.0-0.5); EOSINOPHILS % 1.2 % (0.0-7.0); HEMATOCRIT 28.2 % (37.0-47.0); HEMOGLOBIN 8.6 g/dl (12.0-16.0); LYMPHOCYTES # 1.5 10^3/ul (0.8-2.9); LYMPHOCYTES % 14.5 % (15.0-51.0); MEAN CORPUSCULAR HEMOGLOBIN 32.3 pg (29.0-33.0); MEAN CORPUSCULAR HGB CONC 30.5 g/dl (32.0-37.0); MEAN PLATELET VOLUME 9.6 fl (7.4-10.4); MONOCYTE # 0.5 10^3/ul (0.3-0.9); MONOCYTES % 4.7 % (0.0-11.0); NEUTROPHIL # 7.9 10^3/ul (1.6-7.5); NEUTROPHILS % 77.9 % (39.0-77.0); NUCLEATED RED BLOOD CELLS% 0.2 /100WBC (0.0-0.0); PLATELET COUNT 300 10^3/UL (140-415); RED BLOOD COUNT 2.66 10^6/ul (4.20-5.40); RED CELL DISTRIBUTION WIDTH 22.5 % (11.5-14.5)
[2019-04-25 11:42] LABS: ADD UMIC YES; UR ASCORBIC ACID NEGATIVE (NEGATIVE); UR BILIRUBIN (Dip) NEGATIVE (NEGATIVE); UR BLOOD (Dip) 1+ mg/dL (NEGATIVE); UR CLARITY CLEAR (CLEAR); UR COLOR AMBER (YELLOW); UR GLUCOSE (Dip) NEGATIVE (NEGATIVE); UR KETONES (Dip) NEGATIVE (NEGATIVE); UR LEUKOCYTE ESTERASE (Dip) NEGATIVE Leu/ul (NEGATIVE); UR MUCUS FEW /HPF (NONE SEEN); UR NITRITE (Dip) NEGATIVE (NEGATIVE); UR RBC 0 /HPF (0-5); UR SPECIFIC GRAVITY (Dip) 1.012 (1.003-1.030); UR TOTAL PROTEIN (Dip) NEGATIVE (NEGATIVE); UR UROBILINOGEN (Dip) NEGATIVE (NEGATIVE); UR WBC 0 /HPF (0-5)
[2019-04-25 11:46] LABS: POSITIVE DIFF @See below
[2019-04-25 12:02] LABS: INR 1.34; PROTIME 16.7 Sec (11.9-14.9); PT RATIO 1.3
[2019-04-25 12:04] LABS: ALANINE AMINOTRANSFERASE 36 IU/L (13-69); ALBUMIN 3.3 g/dl (3.3-4.9); ALKALINE PHOSPHATASE 213 IU/L (42-121); ANION GAP 8 (5-13); ASPARTATE AMINO TRANSFERASE 304 IU/L (15-46); BILIRUBIN,INDIRECT 2.4 mg/dl (0-1.1); BILIRUBIN,TOTAL 3.2 mg/dl (0.2-1.3); CARBON DIOXIDE 25 mmol/L (21-31); CHLORIDE 105 mmol/L (97-110); CREATININE 0.52 mg/dl (0.44-1.00); Estimated GFR > 60 mL/min (>60); GLUCOSE 124 mg/dl (70-220); LIPASE 98 U/L (23-300); POTASSIUM 4.1 mmol/L (3.5-5.1); SODIUM 138 mmol/L (135-144); TOTAL PROTEIN 8.8 g/dl (6.1-8.1)
[2019-04-25] MEDS: morphine 2 MG INJ IV (12:05)
[2019-04-25 12:10] LABS: BLOOD UREA NITROGEN 2 mg/dl (7-20)
[2019-04-25 12:11] LABS: CALCIUM 9.4 mg/dl (8.4-10.2)
== END 2019-04-25 13:14 | disposition home or self-care (01) ==
LOC: E/R 09:04
DX: K62.5 Hemorrhage of anus and rectum (principal); R10.9 Unspecified abdominal pain
CPT/HCPCS: 36415; 71045; 80053; 81001; 83690; 85025; 85610; 85730; 86850; 86870; 86900; 86901; 86902; 96374; 99284-25